=== PATIENT | female | born 1970 ===

== ENCOUNTER → 2023-01-04 | Outpatient (CLI) | payer SELFPAY ==
[2023-01-07 16:08] LABS: HPV 16 Negative (Negative); HPV 18 Negative (Negative); HPV OTHER HR TYPES Negative (Negative)
== END ==
LOC: LAB SHORT 15:45 → LAB 15:45
PROVIDERS: Registered Nurse Community Health
DX: Z12.4 Encounter for screening for malignant neoplasm of cervix (principal)
CPT/HCPCS: 87624; G0145